=== PATIENT | male | born 1985 | race Caucasian/White ===

== ENCOUNTER 2025-06-21 14:44 | Emergency (ER) | payer BC, SELFPAY ==
[2025-06-21 14:52] VITALS: BMI 27.5
[2025-06-21 14:55] VITALS: BP 143/89
[2025-06-21 15:09] VITALS: BP 143/89
--- NOTE | 2025-06-21 15:29 | ED.SKININJ ---
HPI-Injury
<Tasia Rodrigez, GARMENT MANUFACTURER - Last Filed: 06/21/25 20:16>
General
Chief Complaint: Skin Surface Trauma
Source: patient
Exam Limitations: none
Time Seen by Provider: 06/21/25 15:18
Nursing documentation reviewed up to this point in time: agreed with
History of Present Illness-Injury
Initial Injury comments:
40-year-old male with no significant past medical history was using a small chain saw to cut branches at home about an hour ago when he cut off the tip of his left index finger. He brought the tip in a bag full of ice which is partially mL, the tip
was removed, picture taken of the tip as well as his finger and sent to hand specialist Dr. Mak
Phy Exam
<Tasia Rodrigez, GARMENT MANUFACTURER - Last Filed: 06/21/25 20:16>
Physical Exam
Physical Exam:
GENERAL: No acute distress. A&Ox3.
CONSTITUTIONAL: Afebrile.
RESPIRATORY: Regular respirations, nonlabored, lungs clear.
CARDIOVASCULAR: Regular rate and rhythm, no murmurs, no rubs.
GI: Soft, nontender, normal BS
MUSCULOSKELETAL: Moves with ease. Well perfused.
SKIN: Warm, dry, pink
PSYCH: Normal mood and affect. Well kept, interactive and appropriate
NEUROLOGIC: Awake, alert and oriented. No focal neurological deficits
Course
<Tasia Rodrigez, GARMENT MANUFACTURER - Last Filed: 06/21/25 20:16>
Orders/Labs/Results
Orders:
Orders
06/21/25 15:27
Finger(s)/Thumb 2 View Lt [CR Finger(s)/thumb Min 2 Vw Lt] Urgent
Comment:
Reason For Exam: distal amputation
06/21/25 17:40
Cephalexin Monohydrate [Keflex] 500 mg PO NOW STA
Vital Signs
Initial and Last Documented VS:
Initial Vital Signs
Pulse Resp Pulse Ox
108 20 98
06/21/25 14:45 06/21/25 14:45 06/21/25 14:45
Last Documented Vital Signs
Temp Pulse Resp BP Pulse Ox
98 F 81 20 136/91 96
06/21/25 17:48 06/21/25 17:48 06/21/25 17:48 06/21/25 17:48 06/21/25 17:48
<Marvin Cast DO - Last Filed: 06/21/25 17:36>
Orders/Labs/Results
Orders:
Orders
06/21/25 15:27
Finger(s)/Thumb 2 View Lt [CR Finger(s)/thumb Min 2 Vw Lt] Urgent
Comment:
Reason For Exam: distal amputation
06/21/25 17:40
Cephalexin Monohydrate [Keflex] 500 mg PO NOW STA
Vital Signs
Initial and Last Documented VS:
Initial Vital Signs
Pulse Resp Pulse Ox
108 20 98
06/21/25 14:45 06/21/25 14:45 06/21/25 14:45
Last Documented Vital Signs
Temp Pulse Resp BP Pulse Ox
98 F 81 20 136/91 96
06/21/25 17:48 06/21/25 17:48 06/21/25 17:48 06/21/25 17:48 06/21/25 17:48
Procedures
<Tasia Rodrigez, GARMENT MANUFACTURER - Last Filed: 06/21/25 20:16>
Laceration Closure
Tip of left index finger:
Status of Wound: clean
Size of Wound in cm: 2
Description of Wound Edges: sharp
Preparation: cleaned with saline
Revision/Debridement: other (After the bone was rongeured by Dr. Miranda)
Type of Closure: single layer closure
Skin Closure Material: 5-0 prolene
Number of sutures: 7
Additional information:
No active bleeding after suturing. Antibiotic ointment, nonstick and tube gauze dressing applied.
Digital Block
Location of injection for digital block: head of metacarpals
Indiction for Digital Block: pain relief
Type of anesthesia: Marcaine
Complications: none- good anesthesia
<Tasia Rodrigez, GARMENT MANUFACTURER - Last Filed: 06/21/25 20:16>
MDM/Problems Addressed
MDM/Problems Addressed:
40-year-old male with no significant past medical history was using a small chain saw to cut branches at home about an hour ago when he cut off the tip of his left index finger. He brought the tip in a bag full of ice which is partially mL, the tip
was removed, picture taken of the tip as well as his finger and sent to hand specialist Dr. Mak
Dr. Mak is not available he is also not on-call, consulted orthopedic on-call Dr. Velazquez who is not a hand specialist and informs me that hand specialist Dr. Arnett is not available (he is also not on-call).
Spoke with [facility] hand specialist Dr. Junior carvajal, I sent pictures to him
He states he cannot guarantee that this can be successfully reattached but he recommends patient going to [facility] for evaluation
Back into discuss this with patient and patient states 'I have come to terms with this,' and does not want to go to another hospital, I explained to him the procedure that is most likely going to be done will be the bone clipping with the flap over
the distal finger and he is asking if this can be arranged.
After the bone was rongeured by Dr. Chan, wound sutured by this examiner, ATB ointment, nonstick and tubegauze dressing applied.
Pt instructed to remove the dressing in 2 days then begin washing the wound daily with soap and water, applying antibiotic ointment and Band-Aids and he was given an aluminum fingertip splint to use for protection
Rx for Keflex and hydrocodone sent to his pharmacy
<Tasia Rodrigez, GARMENT MANUFACTURER - Last Filed: 06/21/25 20:16>
*Pulse Oximetry
SaO2: 95
Oxygen Mode of Delivery: Room air
Patient hypoxic: not evaluated
*Critical Care Note
Total Time (30-74mins, 75-104mins- exclusive of procedures): Not Applicable
ED Attending Note
<Tasia Rodrigez, GARMENT MANUFACTURER - Last Filed: 06/21/25 20:16>
-
Portions of this chart may have been created with voice recognition software.� Occasional wrong word or��sound alike� substitutions may have occurred due to the inherent limitations of voice recognition software.
<Marvin Cast, DO - Last Filed: 06/21/25 17:36>
ED Attending Note
Patient seen and examined by attending physician: Yes
I performed the substantive portion of visit, reviewed & personally made and approve the management plan that is documented in note by myself or YANIQUE.: Yes
ED Attending Note:
I evaluated the patient at bedside. We did consider transfer to [facility]. however the patient refused transfer and he agrees that this is likely not going to be a viable replantation attempt. I then personally rongeured the bone so we could
close the flap he is to follow-up with Ortho locally.
Discharge Plan
Departure
Patient Disposition: Home (Routine Discharge)
Date of Disposition: 06/21/25
Time of Disposition: 17:42
Patient with high blood pressure during this ER visit?: No
Condition: Good
Discharge Problem:
Amputation distal left index finger
Instructions: Laceration Repair With Stitches (DC), Amputation of the Finger or Fingertip (DC)
Prescriptions:
New
cephalexin 500 mg capsule
500 mg PO QID 7 Days Qty: 27 0RF
hydrocodone-acetaminophen 5-325 mg tablet
1 tab PO Q8H PRN (Reason: Pain) Qty: 7 0RF
Referrals:
Satish Velazquez MD [Active, Orthopedics]
Benson Bishop MD [Family Provider, Internal Medicine]
Activity Restrictions/Additional Instructions:
As we discussed, I sent a prescription to your pharmacy for Keflex antibiotic. You were given a dose here today. Take it 4 times a day for 7 days.
Tylenol or ibuprofen as needed for mild to moderate pain and I sent a prescription to your pharmacy for hydrocodone to use if needed for worse pain.
Call Dr. Velazquez's office tomorrow morning and make appointment to have sutures removed in 12 to 14 days
Seek medical care immediately for signs of infection which may include increasing redness, swelling, pain, pus drainage or red streak up the arm or fever
Interventions
Interventions:
*Risk Screen - Suicide Last Done: 06/21/25 14:45
*General Assessment Last Done: 06/21/25 14:45
*Neglect/Abuse Screening Last Done: 06/21/25 14:57
*ED- Fall Risk Assessment Last Done: 06/21/25 14:57
*ED COVID-19 Vaccine History Last Done: 06/21/25 14:57
*Nursing Disposition Last Done: 06/21/25 17:48
ED-Skin Assessment Last Done: 06/21/25 14:53
Discharge Date and Time
Discharge Date/Time: 06/21/25 17:59
Print Language: CITIZEN [place]
[2025-06-21] MEDS: KEFLEX 500 MG PO (17:46)
[2025-06-21 17:48] VITALS: BP 136/91
== END 2025-06-21 17:59 | disposition home or self-care (01) ==
LOC: EMR 14:44
PROVIDERS: EMERGENCY PHYSICIAN Emergency Medicine; FAMILY PHYSICIAN Internal Medicine
DX: S68.611A Complete traumatic transphalangeal amputation of left index finger, initial encounter (principal); W29.3XXA Contact with powered garden and outdoor hand tools and machinery, initial encounter
CPT/HCPCS: 13131; 99283; 73140